=== PATIENT | male | born 1970 | race African-American/Black ===

== ENCOUNTER 2022-02-14 14:52 | Outpatient (CLI) | payer OTHER ==
--- NOTE | 2022-02-15 18:37 | MRI Report ---
PROCEDURE: Lumbar Spine W/O INDICATIONS: LOW BACK PAIN TECHNIQUE: Noncontrast sagittal T1 spin echo and T2 fast echo, sagittal STIR, axial T1 and T2 fast spin echo thr ough the lumbar spine. In cases with scoliosis, additional coronal T2 fast spin echo may be performe d. COMPARISON: None. FINDINGS: Image quality: Excellent. Alignment and Curvature: There is normal bony alignment. Bone Marrow: Marrow is of normal overall signal. No acute vertebral body compression fractures. Spinal Cord: Conus medullaris terminates at the L1 level. Visualized cord demonstrates normal signa l and size. Paraspinous Soft Tissues: No paravertebral masses. T12-L1: Normal in appearance. L1-L2: Normal in appearance. L2-L3: Normal in appearance. L3-L4: The disc height and disc signal are well preserved. Mild to moderate disc bulge is seen, whi ch is eccentric to the right. Mild facet hypertrophy is seen. There is moderate right-sided and mil d left-sided neuroforaminal narrowing. No central canal narrowing is seen. L4-L5: The disc height and disc signal are relatively well-preserved. Mild to moderate disc bulge i s seen, which is eccentric to the right. At least moderate facet hypertrophy is seen. There is modera te to severe bilateral neuroforaminal narrowing seen, right worse than left. Compression is seen upon the exiting nerve roots. Mild central canal narrowing is seen. L5-S1: The disc height and disc signal signal are relatively well-preserved. Mild disc bulge is se en. Mild facet hypertrophy is seen. No significant neuroforaminal narrowing is seen. Mild central canal narrowing can be seen. IMPRESSION: Focal lower lumbar spine degenerative changes are seen, which are worst at L4-L5, where there is moderate to severe bilateral neuroforaminal narrowing seen, with associated exiting L4 nerve root compression. Reviewed by: Raj Otto MD on 02/15/2022 5:36 PM [facility] Approved by: Raj Otto MD on 02/15/2022 5:36 PM [facility] Station ID: [id number]
== END 2022-02-14 14:53 | disposition home or self-care (01) ==
LOC: DI 14:52
PROVIDERS: ATTEND Family Medicine
DX: M47.26 Other spondylosis with radiculopathy, lumbar region (principal); M47.817 Spondylosis without myelopathy or radiculopathy, lumbosacral region

== ENCOUNTER 2022-09-29 18:44 | Outpatient (CLI) | payer OTHER ==
--- NOTE | 2022-09-30 10:48 | Ultrasound Report ---
PROCEDURE: Duplex Lwr Ext Arterial Bilat INDICATIONS: PVD TECHNIQUE: Color and pulse Doppler interrogation was performed of both lower extremity arterial systems, with im age documentation. COMPARISON: None FINDINGS: Right lower extremity: Common femoral artery: 115 cm/sec, with triphasic flow. Deep femoral artery: 63 cm/sec, with triphasic flow. Proximal superficial femoral artery: 131 cm/sec, with triphasic flow. Mid superficial femoral artery: 105 cm/sec, with triphasic flow. Distal superficial femoral artery: 69 cm/sec, with triphasic flow. Popliteal artery: 76 cm/sec, with triphasic flow. Posterior tibial artery: 77 cm/sec, with triphasic and monophasic flow. Anterior tibial artery/dorsalis pedis: 145 cm/sec, with monophasic flow. De Paz-scale imaging description: Mild diffuse plaque Left lower extremity: Common femoral artery: 99 cm/sec, with triphasic flow. Deep femoral artery: 70 cm/sec, with triphasic flow. Proximal superficial femoral artery: 95 cm/sec, with triphasic flow. Mid superficial femoral artery: 91 cm/sec, with triphasic flow. Distal superficial femoral artery: 105 cm/sec, with triphasic flow. Popliteal artery: 63 cm/sec, with triphasic flow. Posterior tibial artery: 79 cm/sec, with monophasic flow. Anterior tibial artery/dorsalis pedis: 187 cm/sec, with monophasic flow. De Paz-scale imaging description: Mild diffuse plaque IMPRESSION: 1. No significant outflow stenosis bilaterally. 2. Hemodynamically significant stenoses within the bilateral anterior and posterior tibial arteries. Initial further assessment with MR angiography runoff evaluation is recommended. Reviewed by: Jeevan Díaz MD on 09/30/2022 10:47 AM [facility] Approved by: Jeevan Díaz MD on 09/30/2022 10:47 AM PST Station ID: [id number]
== END 2022-09-29 18:45 | disposition home or self-care (01) ==
LOC: DI 18:44
PROVIDERS: ATTEND Student in an Organized Health Care Education/Training Program
DX: I70.202 Unspecified atherosclerosis of native arteries of extremities, left leg (principal); I70.201 Unspecified atherosclerosis of native arteries of extremities, right leg
CPT/HCPCS: 93925